=== PATIENT | male | born 1945 | race African-American/Black ===

== ENCOUNTER 2020-11-20 20:52 | Emergency (ER) | payer OTHER ==
[~2020-11-20] VITALS: Ht 182.9 cm; Wt 83.9 kg
--- NOTE | ~2020-11-20 | EMS ---
[place] [id number] EMS Patient Care Report Name: TARA PHAN Room #: DEP LINDA Alcantara#: [id number] Admission: 11/20/20 Attend Phys: Discharge: 11/20/20 Date of : 47 Report #: [id number] THIS REPORT FOR: //name// Report Transmitted: 11/21/2020 22:00 EMS Care Summary [place], [place]/[facility] Incident [id number] @ 11/20/2020 20:02 Incident Location [id number] [place] [address] Patient TARA PHAN Male, 74 Years 1945 Patient Address [address] [place], [place] [id number] Patient History Stroke/CVA,Cardiac Condition - Other,Type 2 Diabetes,Chronic Respiratory Failure, Patient Allergies No known allergies, Patient Medications Albuterol, Chief Complaint Cardiac Arrest Disposition Transported Lights/[place] Dispatch Reason Cardiac Arrest/ Transported To [facility] Narrative Station 28 responded immediately to the scene of a Cardiac Arrest. Arrived on scene and staff direct us to pt's location. [address] [address] EMS Patient Care Report Name: TARA PHAN Room #: DEP Maricruz#: [id number] Admission: 11/20/20 Attend Phys: Discharge: 11/20/20 Date of : 47 Report #: [id number] Upon arrival, staff are performing CPR and giving BVM ventilations. Pt was last seen an hour ago by kitchen staff. When nursing staff made their hourly rounds, pt was found unresponsive and not breathing. Staff then report moving pt to floor, initiating CPR, then contacted EMS. Pt has not reportedly been ill or acting abnormally after last several days. Pt is full code. P28 took over CPR and BVM ventilations from staff. Multi-function patches placed. iGEL placed and secured via commercial device. ETCO2 placed inline of iGEL and BVM. Pulse checks performed approximately every 2 mins throughout efforts. Initial Rhythm is asystole. During pulse check, AutoPulse placed under pt and compressions began then continued via AP throughout rest of resuscitative efforts. 18g IV attempt failed. 25mm IO then secured. Epi 1:10 000 administered and given every 3-5 minutes throughout resuscitation. Narcan 2mg administered. D-stick obtained. At approximately the 25 minute genaro, made contact with family and updated them with pt's status, and that pt remains in asystole. They request EMS transport pt to hospital. At approximately the 28 minute genaro, pt prepared for transport. Lifted over to cot, secured on via straps, rails up, then moved out to ambulance. No changes in airway after moving. Secured in back of ambulance then transport to [facility] initiated. Contacted with a 3-5 minute ETA, and report given. During transport, pulse checks performed approximately every 2 minutes and pt remains in asystole. Epi 1:10 000 continued to be administered. Arrived at and pt to ER 06. Report to receiving team then care released. Initial Vitals @20:32P: 161,R: 11,EtCO2: 45,SpO2: 60, @20:25P: 158,R: 9,EtCO2: 43,SpO2: 63, @20:14P: 157, @20:45P: 161,R: 11,EtCO2: 35,SpO2: 72, @20:19P: 158,R: 10,Glucose: 229,EtCO2: 33,SpO2: 37, @20:39P: 155,R: 14,EtCO2: 43,SpO2: 62, @20:10P: 32,R: 10,Pain: 0/10,GCS: 3, @20:50P: 159,R: 12,GCS: 3,EtCO2: 36,SpO2: 66, Assessments @20:08MENTAL:Unresponsive,SKIN:HEENT:LUNG SOUNDS:ABDOMEN:PELVIS//GI:EXTREMITIES:Right Arm: Weakness,PULSE:Radial: Absent,Carotid: Absent,NEURO: Impression [address] [address] EMS Patient Care Report Name: TARA PHAN Room #: DEP Ge.#: [id number] Admission: 11/20/20 Attend Phys: Discharge: 11/20/20 Date of : 47 Report #: [id number] Cardiac arrest Procedures @20:16General CommentsResponse: Unchanged@20:23Epinephrine 1:10 - 1 Milligrams (mg) - Intraosseous (IO)Response: Unchanged@20:40Epinephrine 1:10 - 1 Milligrams (mg) - Intraosseous (IO)Response: Unchanged@20:08Response: UnchangedSucceeded@20:35Epinephrine 1:10 - 1 Milligrams (mg) - Intraosseous (IO)Response: Unchanged@20:19Epinephrine 1:10 - 1 Milligrams (mg) - Intraosseous (IO)Response: Unchanged@20:19Normal Saline (.9% NaCl) 250cc (EZ-IO (Blue 25mm)) Site: LG-Abplo-Dbtq ProximalResponse: UnchangedSucceeded@20:27Epinephrine 1:10 - 1 Milligrams (mg) - Intraosseous (IO)Response: Unchanged@20:31Epinephrine 1:10 - 1 Milligrams (mg) - Intraosseous (IO)Response: Unchanged@20:11iGEL Complications: None,Response: UnchangedSucceeded@20:14Response: UnchangedSucceeded@20:45Epinephrine 1:10 - 1 Milligrams (mg) - Intraosseous (IO)Response: Unchanged@20:22Narcan - 2 Milligrams (mg) - Intraosseous (IO)Response: Unchanged@20:51Epinephrine 1:10 - 1 Milligrams (mg) - Intraosseous (IO)Response: Unchanged@20:08ALS AssessmentResponse: UnchangedSucceeded Timeline 19:59,Call Received 19:59,Dispatch Notified 20:02,Dispatched 20:02,En Route 20:06,On Scene 20:08,At Patient 20:08,ALS Assessment,Response: UnchangedSucceeded, 20:08,Response: UnchangedSucceeded, 20:10,BP: / M,PULSE: 32,RR: 10 R,SPO2: Ox,ETCO2: ,BG: ,PAIN: 0,GCS: 3, 20:11,iGEL Complications: None,,Response: UnchangedSucceeded, 20:14,Response: UnchangedSucceeded, 20:14,BP: / M,PULSE: 157,RR: R,SPO2: Ox,ETCO2: ,BG: ,PAIN: ,GCS: , 20:16,General Comments,Response: Unchanged 20:19,Normal Saline (.9% NaCl) 250cc EZ-IO (Blue 25mm) Site: XE-Tisko-Injq Proximal,Response: UnchangedSucceeded, 20:19,BP: / M,PULSE: 158,RR: 10 R,SPO2: 37 Ox,ETCO2: 33 ,B,PAIN: ,GCS: , 20:19,Epinephrine 1:10 - 1 Milligrams (mg) - Intraosseous (IO),Response: Unchanged 20:22,Narcan - 2 Milligrams (mg) - Intraosseous (IO),Response: Unchanged 20:23,Epinephrine 1:10 - 1 Milligrams (mg) - Intraosseous (IO),Response: Unchanged 20:25,BP: / M,PULSE: 158,RR: 9 R,SPO2: 63 Ox,ETCO2: 43 ,BG: ,PAIN: ,GCS: , 20:27,Epinephrine 1:10 - 1 Milligrams (mg) - Intraosseous (IO),Response: Unchanged 20:31,Epinephrine 1:10 - 1 Milligrams (mg) - Intraosseous (IO),Response: Unchanged [address] [address] EMS Patient Care Report Name: TARA PHAN Room #: SANDEEP Alcantara#: [id number] Admission: 11/20/20 Attend Phys: Discharge: 11/20/20 Date of : 47 Report #: [id number] 20:32,BP: / M,PULSE: 161,RR: 11 R,SPO2: 60 Ox,ETCO2: 45 ,BG: ,PAIN: ,GCS: , 20:35,Epinephrine 1:10 - 1 Milligrams (mg) - Intraosseous (IO),Response: Unchanged 20:39,BP: / M,PULSE: 155,RR: 14 R,SPO2: 62 Ox,ETCO2: 43 ,BG: ,PAIN: ,GCS: , 20:40,Epinephrine 1:10 - 1 Milligrams (mg) - Intraosseous (IO),Response: Unchanged 20:42,Depart Scene 20:45,Epinephrine 1:10 - 1 Milligrams (mg) - Intraosseous (IO),Response: Unchanged 20:45,BP: / M,PULSE: 161,RR: 11 R,SPO2: 72 Ox,ETCO2: 35 ,BG: ,PAIN: ,GCS: , 20:50,BP: / M,PULSE: 159,RR: 12 R,SPO2: 66 Ox,ETCO2: 36 ,BG: ,PAIN: ,GCS: 3, 20:50,At Destination 20:51,Epinephrine 1:10 - 1 Milligrams (mg) - Intraosseous (IO),Response: Unchanged 21:15,Call Closed Disclaimer v1.1 Copyright 2020 [employer] This EMS Care Summary contains data elements from the applicable legal record (which may be displayed differently). It is designed to provide pertinent information for the following purposes: continuity of care, clinical quality, and state data reporting. The complete legal record is available to ED staff and administrators of the receiving hospital in [employer]'s Patient Tracker. All data is provided "as is."
== END 2020-11-20 20:59 ==
LOC: ER 20:52
DX: I46.9 Cardiac arrest, cause unspecified (principal); J96.10 Chronic respiratory failure, unspecified whether with hypoxia or hypercapnia; F32.9 Major depressive disorder, single episode, unspecified